=== PATIENT | female | born 1985 | race Caucasian/White ===

== ENCOUNTER → 2017-09-20 | Outpatient (CLI) | payer BC | LOC: COL.VAS 08:55 | DX: I83.91 Asymptomatic varicose veins of right lower extremity (principal) ==

== ENCOUNTER 2017-12-28 08:49 | Outpatient (CLI) | payer BC ==
[~2017-12-28] VITALS: Ht 177.8 cm; Wt 82.3 kg
[2017-12-28 09:05] VITALS: BP 138/75; PULSE 69; TEMP 98.2
[2017-12-28] MEDS ORDERED: FLONASE NASAL S16 GM NS (09:11)
[2017-12-28] MEDS ORDERED: PRENATAL MVI PO (09:12)
[2017-12-28 10:36] VITALS: BP 131/70; PULSE 78
[2017-12-29] MEDS ORDERED: MOTRIN 800800 MG/TAB PO (16:22)
[2017-12-29] MEDS ORDERED: PERCOCET 325 MG1 TA2 PO (16:22)
== END 2017-12-28 10:42 | disposition home or self-care (01) ==
LOC: LDRO 08:49
DX: O62.9 Abnormality of forces of labor, unspecified (principal); Z3A.38 38 weeks gestation of pregnancy

== ENCOUNTER 2017-12-29 11:46 | Inpatient (IN) | payer BC ==
[2017-12-29] VITALS (29 sets, daily range): BP systolic 114–147; BP diastolic 62–84; PULSE 60–104; TEMP 98–98.3
[~2017-12-29] VITALS: Ht 175.3 cm; Wt 81.8 kg
[~2017-12-29 11:46] MED LIST: FLONASE NASAL S16 GM NS; PRENATAL MVI PO
[2017-12-29 12:30] LABS: BASO % 0.2 % (0.0-2.0); EOS # 0.1 (0.0-0.7); EOS % 0.9 % (0-4.0); GRAN # 10.7 (1.4-6.5); GRAN % 80.3 % (42.2-75.2); HEMATOCRIT 31.9 % (37.0-47.0); HEMOGLOBIN 10.4 g/dl (12.5-16.0); LYMPH # 1.3 (1.2-3.4); LYMPH % 9.7 % (20.0-51.0); MEAN CELL VOLUME 85 fl (80.0-100.0); MEAN CORPUSCULAR HEMOGLOBIN 28 pg (27.0-31.0); MEAN CORPUSCULAR HGB CONC 33 g/dl (33.0-37.0); MEAN PLATELET VOLUME 11.9 fl (7.4-10.4); MONO # 1.1 (0.1-0.6); MONO % 8.4 % (1.7-9.3); PLATELET COUNT 162 K/mm3 (130-400); RED BLOOD COUNT 3.74 M/mm3 (4.10-5.30); REDCELL DISTRIBUTION WIDTH-CV 13.8 % (11.5-14.5)
[2017-12-29] MEDS ORDERED: PERCOCET 325 MG1 TA2 PO (16:22)
[2017-12-29] MEDS ORDERED: MOTRIN 800800 MG/TAB PO (16:22)
[2017-12-30 01:10] VITALS: BP 102/69; PULSE 87; TEMP 98.3
[2017-12-30 05:04] VITALS: BP 117/52; PULSE 64; TEMP 97.4
[2017-12-30 08:00] VITALS: BP 109/51; PULSE 82; TEMP 97.2
[2017-12-30 12:30] VITALS: BP 118/67; PULSE 79; TEMP 97.5
[2017-12-30 16:05] VITALS: BP 110/50; PULSE 91; TEMP 98.3
[2017-12-30 18:30] VITALS: BP 132/72; PULSE 84; TEMP 98
== END 2017-12-30 19:05 | disposition home or self-care (01) | DRG 775 ==
LOC: LDRO 11:46 → LDR 12:00 → OB 20:00
PROVIDERS: Obstetrics & Gynecology
PROC: 10E0XZZ Delivery of Products of Conception, External Approach (ICD-10-PCS; principal; 2017-12-29)
PROC: 0HQ9XZZ Repair Perineum Skin, External Approach (ICD-10-PCS; 2017-12-29)
DX: O99.12 Other diseases of the blood and blood-forming organs and certain disorders involving the immune mechanism complicating childbirth (principal); D69.6 Thrombocytopenia, unspecified; Z3A.38 38 weeks gestation of pregnancy; Z37.0 Single live birth; O69.1XX0 Labor and delivery complicated by cord around neck, with compression, not applicable or unspecified; J45.909 Unspecified asthma, uncomplicated; O70.0 First degree perineal laceration during delivery
CPT/HCPCS: J2590; J2795; J7120

== ENCOUNTER → 2018-01-05 | Outpatient (CLI) | payer BC ==
[~2018-01-05] MED LIST changes: +MOTRIN 800800 MG/TAB PO; +PERCOCET 325 MG1 TA2 PO
== END ==
LOC: LAC 14:55
DX: Z39.1 Encounter for care and examination of lactating mother (principal); Z71.89 Other specified counseling

== ENCOUNTER → 2018-01-09 | Outpatient (CLI) | payer BC | LOC: OLC 10:21 | DX: Z39.1 Encounter for care and examination of lactating mother (principal); Z71.89 Other specified counseling ==